=== PATIENT | male | born 2000 | race Hispanic/Latino ===

== ENCOUNTER 2020-01-21 08:56 | Emergency (ER) | payer BC ==
[2020-01-21 09:24] LABS: Absolute Lymphocytes (CBC) 3.7 K/uL (0.7-4.9); Basophils % 0.5 % (0-1.3); Hematocrit 44.6 % (39.6-49.0); Lymphocytes % 48.5 % (15.3-44.8); MPV 7.7 fL (7.6-11.3); RBC Red Blood Cell Count 5.37 M/uL (4.33-5.43)
[2020-01-21] MEDS ORDERED: MEPERIDINE HCL 50 MG/ML ONE (09:26)
[2020-01-21 09:44] LABS: Urine Bacteria <20 /HPF (NONE SEEN); Urine Culture Reflex Order REFLEXED; Urine RBC TNTC /HPF (NONE SEEN)
[2020-01-21 09:50] LABS: Albumin 4.4 g/dL (3.4-5.0); Bilirubin Direct 0.2 mg/dL (0-0.2); Bilirubin Total 0.6 mg/dL (0.2-1.0); Potassium 3.6 mmol/L (3.5-5.1)
[2020-01-21 10:07] LABS: Blood Morphology Comment NOT SEEN (NOT SEEN); Platelet Estimate ADEQ
[2020-01-21 10:38] LABS: Urine Blood 3+ (NEG); Urine Glucose NEGATIVE (NEG); Urine Protein 2+ (NEG); Urine Specific Gravity >1.030 (1.005-1.030); Urine pH 5.5 (5.0-7.0)
--- NOTE | 2020-01-21 10:39 | RAD REPORT ---
EXAM DESCRIPTION: CT - Stone Protocol - 01/21/2020 10:30 am CLINICAL HISTORY: Flank pain. left flank and abd pain COMPARISON: No comparisons TECHNIQUE: Axial images were obtained without oral or IV contrast. Lack of contrast limits solid org an and vascular assessment. The [id number] spans the entirety of the system partially obscuring uppermost abdomen and lung bases. Coronal reformatted images were obtained and reviewed. All CT scans are performed using dose optimization technique as appropriate and may include automated exposure control or mA/KV adjustment according to patient size. FINDINGS: The lower lung stewart are clear. Imaged portions of the liver and spleen show no suspicious findings on non-contrast imaging. The panc reas and adrenal glands are normal. No pathologic lymphadenopathy in the abdomen or pelvis. Punctate bilateral renal calculi are seen within the calices of both kidneys. In addition, there is a 3 mm calculus (730 HU) in the proximal left ureter resulting in mild left hydronephrosis. No bowel obstruction, free air, free fluid or abscess. Normal appendix noted. No significant bony abnormality. IMPRESSION: 3 mm calculus is present proximal left ureter mild left hydronephrosis. Punctate bilateral nephrolithiasis.
[2020-01-21] MEDS ORDERED: MAGNESIUM SULFATE 1 gm IVPB 1 GM/100 ML BAG IV ONE (10:52)
[2020-01-21] MEDS ORDERED: TAMSULOSIN 0.4 MG SR CAP ONE (10:52)
[2020-01-21] MEDS ORDERED: KETOROLAC 30 MG/ML INJ ONE (10:52)
--- NOTE | 2020-01-21 11:03 | ER ---
Nurse's Notes [facility] Name: Shyam Espino Age: 19 yrs Sex: Male : 2000 Arrival Date: 01/21/2020 Time: 08:59 Bed 13 Private MD: Diagnosis: Ureterolithiasis Presentation: 01/20 09:08 Chief complaint: Patient states: left lower abd pain that started last night, denies em N/V/D or fever. Coronavirus screen: Client denies travel out of the [place] in the last 14 days. At this time, the client does not indicate any symptoms associated with coronavirus-19. Ebola Screen: Patient negative for fever greater than or equal to 101.5 degrees Fahrenheit, and additional compatible Ebola Virus Disease symptoms Patient denies exposure to infectious person. Patient denies travel to an Ebola-affected area in the 21 days before illness onset. No symptoms or risks identified at this time. Initial Sepsis Screen: Does the patient meet any 2 criteria? No. Patient's initial sepsis screen is negative. Does the patient have a suspected source of infection? No. Patient's initial sepsis screen is negative. Risk Assessment: Do you want to hurt yourself or someone else? Patient reports no desire to harm self or others. Onset of symptoms was January 20, 2020. 09:08 Method Of Arrival: Ambulatory em 09:08 Acuity: MEI 3 em Triage Assessment: 11:54 General: Behavior is. ca1 Historical: - Allergies: 09:25 No Known Allergies; em - PMHx: 09:25 None; em - PSHx: 09:25 None; em - Immunization history:: Adult Immunizations up to date. - Social history:: Smoking status: Patient denies any tobacco usage or history of. - Family history:: not pertinent. - Hospitalizations: : No recent hospitalization is reported. Screenin:10 Abuse screen: Denies threats or abuse. Nutritional screening: No deficits noted. em Tuberculosis screening: No symptoms or risk factors identified. Fall Risk None identified. Assessment: 09:08 General: Appears uncomfortable, Denies fever. Pain: Complains of pain in left lower em quadrant Pain currently is 10 out of 10 on a pain scale. Pain began 1 day ago. Neuro: Level of Consciousness is awake, alert, obeys commands, Oriented to person, place, time, situation, Appropriate for age. Cardiovascular: Capillary refill < 3 seconds Patient's skin is warm and dry. Respiratory: Airway is patent Respiratory effort is even, unlabored, Respiratory pattern is regular, symmetrical. GI: Abdomen is flat, Bowel sounds present X 4 quads. Abd is soft X 4 quads Abdomen is tender to palpation in left lower quadrant Patient currently denies diarrhea, nausea, vomiting. : Reports blood in urine this morning. Derm: Skin is intact, is healthy with good turgor, Skin is pink, warm \T\ dry. Musculoskeletal: Capillary refill < 3 seconds, Range of motion: intact in all extremities. 09:45 Reassessment: Patient appears in no apparent distress at this time. Patient and/or em family updated on plan of care and expected duration. Pain level reassessed. Patient is alert, oriented x 3, equal unlabored respirations, skin warm/dry/pink. Patient states feeling better. 10:40 Reassessment: Patient appears in no apparent distress at this time. Patient and/or ca1 family updated on plan of care and expected duration. Pain level reassessed. Patient is alert, oriented x 3, equal unlabored respirations, skin warm/dry/pink. 11:05 Reassessment: IV Mg infusing. For D/C once completed. ca1 11:53 Reassessment: Patient appears in no apparent distress at this time. Patient is alert, ca1 oriented x 3, equal unlabored respirations, skin warm/dry/pink. Vital Signs: 09:08 BP 126 / 67; Pulse 72; Resp 18; Temp 98.9; Pulse Ox 98% on R/A; Pain 10/10; em 10:00 BP 122 / 54; Pulse 63; Resp 18; Pulse Ox 100% on R/A; Pain 2/10; em 10:40 BP 108 / 58; Pulse 76; Resp 15 S; Pulse Ox 100% on R/A; ca1 11:53 BP 105 / 55; Pulse 80; Resp 15 S; Pulse Ox 100% on R/A; ca1 ED Course: 08:59 Patient arrived in ED. as 09:01 Chaim Shirley, NORMAN is Primary Nurse. em 09:02 Tao Morrissey MD is Attending Physician. rn 09:10 Patient has correct armband on for positive identification. Placed in gown. Bed in low em position. Call light in reach. Pulse ox on. NIBP on. 09:14 Initial lab(s) drawn, by me, sent to lab. Urine collected: clean catch specimen, kj1 cloudy, Amount Voided: 10mL. Inserted saline lock: 20 gauge in right antecubital area, using aseptic technique. Blood collected. 09:24 Triage completed. em 09:25 Arm band placed on. em 10:30 CT completed. Patient tolerated procedure well. Patient moved back from CT. bq 11:54 No provider procedures requiring assistance completed. IV discontinued, intact, ca1 bleeding controlled, No redness/swelling at site. Pressure dressing applied. Administered Medications: 09:08 CANCELLED (Duplicate Order): Demerol 25 mg IVP once; RASS on ADMIN: Combtv4, Very rn Agttd3, Agttd2, Rstlss1, AlertClm0, Drwsy-1, Lt Sdtn-2, Mod Sdtn-3, Dp Sdtn-4, UnArsble-5 09:16 Drug: Demerol - Meperidine 12.5 mg Route: IVP; Site: right antecubital; em 10:21 Follow up: Response: No adverse reaction; Pain is decreased; RASS: Alert and Calm (0) ca1 10:41 Drug: Flomax 0.4 mg Route: PO; ca1 11:55 Follow up: Response: No adverse reaction ca1 10:42 Drug: TORadol - Ketorolac 15 mg Route: IVP; Site: right antecubital; ca1 11:35 Follow up: Response: No adverse reaction; Pain is decreased ca1 10:45 Drug: Magnesium Sulfate 1 grams Route: IVPB; Infused Over: 1 hrs; Site: right ca1 antecubital; 11:50 Follow up: Response: No adverse reaction; IV Status: Completed infusion ca1 Outcome: 11:03 Discharge ordered by . rn 11:55 Discharged to home ambulatory. ca1 11:55 Condition: stable 11:55 Discharge instructions given to patient, Instructed on discharge instructions, follow up and referral plans. no drinking with medication, no driving heavy equipment, medication usage, Demonstrated understanding of instructions, follow-up care, medications, Prescriptions given X 3. 11:56 Patient left the ED. ca1 Signatures: Melissa Banda Edgar, RN RN em Savanna Longoria Roman, MD MD rn AcYola padilla RN RN ca1 Zonia Heath kj1 Corrections: (The following items were deleted from the chart) 10:54 10:54 Reassessment: Patient appears in no apparent distress at this time. Patient ca1 and/or family updated on plan of care and expected duration. Pain level reassessed. Patient is alert, oriented x 3, equal unlabored respirations, skin warm/dry/pink. ca1
--- NOTE | 2020-01-21 11:03 | EDPHYS ---
Physician Documentation [facility] Name: Shyam Espino Age: 19 yrs Sex: Male : 2000 Arrival Date: 01/21/2020 Time: 08:59 Bed 13 Private MD: ED Physician Tao Morrissey HPI: 01/20 09:09 This 19 yrs old Male presents to ER via Unassigned with complaints of rn Abdominal Pain. 09:09 The patient presents with abdominal pain in the lower abdomen, in the left lower rn quadrant. Onset: The symptoms/episode began/occurred 2 hour(s) ago. The symptoms do not radiate. Associated signs and symptoms: Pertinent negatives: blood in stools, constipation, diarrhea, dysuria, fever, hematuria, testicular pain, vomiting, vomiting blood. The symptoms are described as achy, sharp. Modifying factors: The symptoms are alleviated by nothing, the symptoms are aggravated by nothing. Severity of pain: At its worst the pain was moderate in the emergency department the pain is unchanged. The patient has not experienced similar symptoms in the past. Reports approx 2 hours of LLQ abd pain, no fever/vomiting/diarrhea/trauma. Reports started left lower back. No testicular pain or radiation. NO urinary complaints. NO sick contacts. . Historical: - Allergies: 09:25 No Known Allergies; em - PMHx: 09:25 None; em - PSHx: 09:25 None; em - Immunization history:: Adult Immunizations up to date. - Social history:: Smoking status: Patient denies any tobacco usage or history of. - Family history:: not pertinent. - Hospitalizations: : No recent hospitalization is reported. ROS: 09:09 Constitutional: Negative for fever, chills, and weight loss, Eyes: Negative for injury, rn pain, redness, and discharge, Neck: Negative for injury, pain, and swelling, Cardiovascular: Negative for chest pain, palpitations, and edema, Respiratory: Negative for shortness of breath, cough, wheezing, and pleuritic chest pain, Abdomen/GI: Negative for nausea, vomiting, diarrhea, and constipation, Back: + left lower back pain : Negative for injury, bleeding, discharge, and swelling, MS/Extremity: Negative for injury and deformity, Skin: Negative for injury, rash, and discoloration, Neuro: Negative for headache, weakness, numbness, tingling, and seizure. Exam: 09:09 Constitutional: This is a well developed, well nourished patient who is awake, alert, rn and in no acute distress. Head/Face: Normocephalic, atraumatic. Cardiovascular: Regular rate and rhythm. No pulse deficits. Respiratory: No increased work of breathing, no retractions or nasal flaring. Abdomen/GI: soft, + mild LLQ tenderness, no rebound, no masses Back: No spinal tenderness. No costovertebral tenderness. Full range of motion. Skin: Warm, dry MS/ Extremity: Pulses equal, no cyanosis. Neurovascular intact. Full, normal range of motion. Equal circumference. Neuro: Awake and alert, GCS 15 Vital Signs: 09:08 BP 126 / 67; Pulse 72; Resp 18; Temp 98.9; Pulse Ox 98% on R/A; Pain 10/10; em 10:00 BP 122 / 54; Pulse 63; Resp 18; Pulse Ox 100% on R/A; Pain 2/10; em 10:40 BP 108 / 58; Pulse 76; Resp 15 S; Pulse Ox 100% on R/A; ca1 11:53 BP 105 / 55; Pulse 80; Resp 15 S; Pulse Ox 100% on R/A; ca1 MDM: 09:02 Patient medically screened. rn 11:02 Differential diagnosis: Ureterolithiasis. Data reviewed: vital signs, nurses notes, rn labor delivery test result(s), radiologic studies, CT scan, and as a result, I will discharge patient. Counseling: I had a detailed discussion with the patient and/or guardian regarding: the historical points, exam findings, and any diagnostic results supporting the discharge/admit diagnosis, lab results, radiology results, the need for outpatient follow up, to return to the emergency department if symptoms worsen or persist or if there are any questions or concerns that arise at home. Response to treatment: the patient's symptoms have markedly improved after treatment, the patient's condition has returned to base line, the patient is now symptom free, and as a result, I will discharge patient. Special discussion: I discussed with the patient/guardian in detail that at this point there is no indication for admission to the hospital. It is understood, however, that if the symptoms persist or worsen the patient needs to return immediately for re-evaluation. 01/20 09:08 Order name: Basic Metabolic Panel rn 01/20 09:08 Order name: CBC with Diff rn 01/20 09:08 Order name: Hepatic Function rn 01/20 09:08 Order name: Lipase rn 01/20 09:08 Order name: Urine Microscopic Only rn 01/20 09:23 Order name: Urine Dipstick--Ancillary (enter results) mt 01/20 09:08 Order name: CT Stone Protocol rn 01/20 09:28 Order name: CBC with Automated Diff; Complete Time: 10:10 EDMS 01/20 09:44 Order name: Urine Microscopic Only; Complete Time: 10:10 EDMS 01/20 09:50 Order name: Basic Metabolic Panel; Complete Time: 10:10 EDMS 01/20 09:50 Order name: Liver (Hepatic) Function; Complete Time: 10:10 EDMS 01/20 09:50 Order name: Lipase; Complete Time: 10:10 EDMS 01/20 10:07 Order name: Manual Differential; Complete Time: 10:10 EDMS 01/20 10:38 Order name: Urine Dipstick-Ancillary EDMS 01/20 09:08 Order name: IV Saline Lock; Complete Time: 09:25 rn 01/20 09:08 Order name: Labs collected and sent; Complete Time: 09:25 rn 01/20 09:08 Order name: Urine Dipstick-Ancillary (obtain specimen); Complete Time: 09:25 rn 01/20 10:39 Order name: CT EDMS Administered Medications: 09:08 CANCELLED (Duplicate Order): Demerol 25 mg IVP once; RASS on ADMIN: Combtv4, Very rn Agttd3, Agttd2, Rstlss1, AlertClm0, Drwsy-1, Lt Sdtn-2, Mod Sdtn-3, Dp Sdtn-4, UnArsble-5 09:16 Drug: Demerol - Meperidine 12.5 mg Route: IVP; Site: right antecubital; em 10:21 Follow up: Response: No adverse reaction; Pain is decreased; RASS: Alert and Calm (0) ca1 10:41 Drug: Flomax 0.4 mg Route: PO; ca1 11:55 Follow up: Response: No adverse reaction ca1 10:42 Drug: TORadol - Ketorolac 15 mg Route: IVP; Site: right antecubital; ca1 11:35 Follow up: Response: No adverse reaction; Pain is decreased ca1 10:45 Drug: Magnesium Sulfate 1 grams Route: IVPB; Infused Over: 1 hrs; Site: right ca1 antecubital; 11:50 Follow up: Response: No adverse reaction; IV Status: Completed infusion ca1 Disposition: 01/21/20 11:03 Discharged to Home. Impression: Ureterolithiasis. - Condition is Stable. - Discharge Instructions: Kidney Stones, Dietary Guidelines to Help Prevent Kidney Stones. - Prescriptions for Zofran ODT 4 mg Oral tablet,disintegrating - place 1 tablet by TRANSLINGUAL route every 8 hours As needed; 20 tablet. Tylenol- Codeine #3 300-30 mg Oral Tablet - take 1 tablet by ORAL route every 6 hours As needed; 20 tablet. Flomax 0.4 mg Oral Capsule, Sust. Release 24 hr - take 1 capsule by ORAL route once daily As needed 1/2 hour following the same meal each day. Stop taking once you feel that you have passed current kidney stone; 7 capsule. - Medication Reconciliation Form, Thank You Letter, Antibiotic Education, Prescription Opioid Use form. - Follow up: Private Physician; When: As needed; Reason: Recheck today's complaints, Re-evaluation by your physician. - Problem is new. - Symptoms have improved. Signatures: Dispatcher [employer] Chaim Dasilva, RN RN Tao Marshall MD MD rn Acob, NORMAN Aceves RN ca1 Corrections: (The following items were deleted from the chart) 09:08 09:08 Demerol 25 mg IVP once; RASS on ADMIN: Combtv4, Very Agttd3, Agttd2, Rstlss1, rn AlertClm0, Drwsy-1, Lt Sdtn-2, Mod Sdtn-3, Dp Sdtn-4, UnArsble-5 ordered. rn 09:11 09:09 Constitutional: This is a well developed, well nourished patient who is awake, rn alert, and in no acute distress. Head/Face: Normocephalic, atraumatic. Cardiovascular: Regular rate and rhythm. No pulse deficits. Respiratory: No increased work of breathing, no retractions or nasal flaring. Abdomen/GI: soft, + mild LLQ tenderness, no rebound, no masses Skin: Warm, dry MS/ Extremity: Pulses equal, no cyanosis. Neurovascular intact. Full, normal range of motion. Equal circumference. Neuro: Awake and alert, GCS 15 rn 11:56 11:03 01/21/2020 11:03 Discharged to Home. Impression: Ureterolithiasis. Condition is ca1 Stable. Forms are Medication Reconciliation Form, Thank You Letter, Antibiotic Education, Prescription Opioid Use. Follow up: Private Physician; When: As needed; Reason: Recheck today's complaints, Re-evaluation by your physician. Problem is new. Symptoms have improved. rn
[2020-01-21 12:13] VITALS: TEMP 98.9
[2020-01-21 12:15] VITALS: O2SAT 100
[2020-01-21 12:17] VITALS: BP 105/55
== END 2020-01-21 11:56 | disposition home or self-care (01) ==
LOC: ER 08:56
DX: N20.1 Calculus of ureter (principal)
CPT/HCPCS: 87088; 85025; 87086; 80048; 36415; 80076; 83690; 76377; 74176; J3475; J2175; 81003; 81015; 96365; 96375; 99284